=== PATIENT | female | born 1980 | race Caucasian/White ===

== ENCOUNTER 2019-10-27 11:58 | Emergency (ER) | payer BC, SELFPAY ==
[2019-10-27 12:00] VITALS: BP 187/97; PULSE 93; RESP 18; TEMP 36.8; O2SAT 96
[2019-10-27 12:19] VITALS: BP 146/85
--- NOTE | 2019-10-27 12:54 | ED.DIZZY ---
HPI - Dizziness General Chief Complaint: Dizziness Stated Complaint: dizzy Time Seen by Provider: 10/27/19 12:55 History of Present Illness HPI Narrative: 39-year-old female patient is here with chief complaints of experiencing dizziness for the last 2-3 days. She states that it started with waking up 3 days ago and has continued since then. The dizziness is worse when she changes position especially from lying down to standing up. The patient denies any trouble walking and has driven herself to the ER today. She denies any passing out episodes. She denies any associated headache or nausea or vomiting. She does complain about some sinus pressure. She denies any earache. She states that her last menstrual period was just a week ago and that she is sexually active and not on any control. However she bleeds that she is not at this time. The patient states that she had had a similar episode of dizziness. Ears ago and she was told that it was her inner ear infection at that time. She is currently on no medications and has allergies to sulfa and shrimp. Related Data Allergies Allergy/AdvReac Type Severity Reaction Status Date / Time Sulfa (Sulfonamide Allergy Unknown HIVES Unverified 08/08/11 02:36 Antibiotics) sulfanilamide Allergy Unknown Verified 07/15/11 14:35 Shrimp Allergy Unknown HIVES Uncoded 08/08/11 02:36 Review of Systems Review of Systems: All systems reviewed & are unremarkable except as noted in HPI and below Constitutional: Constitutional: Reports as per HPI, Reports no additional constitutional complaints, Denies chills, Denies fatigue, Denies fever(s) and Denies weakness Eyes: Eyes: Denies change in vision and Denies photophobia ENT: Reports vertigo, Reports dizziness, Reports nasal congestion and Denies sore throat Cardiovascular: Cardiovascular: Reports no additional cardiovascular complaints Respiratory: Respiratory: Reports no additional respiratory complaints Gastrointestinal: Gastrointestinal: Reports no additional gastrointestinal complaints, Denies nausea and Denies vomiting Genitourinary: Genitourinary: Reports no additional female genitourinary complaints Musculoskeletal: Musculoskeletal: Reports no additional musculoskeletal complaints Integumentary/Breasts: Skin/Breast: Reports as per HPI Neurologic: Reports system reviewed and no additional complaints, except as documented, Denies confusion, Reports vertigo, Reports dizziness, Denies syncope, Denies headache(s), Denies focal weakness, Denies numbness and Denies weakness Psychiatric: Psychiatric: Reports no additional psychiatric complaints PMFSH Past Medical History Medical History (Updated 10/27/19 @ 14:05 by Azul Chou MD) No pertinent past medical history Surgical History Surgical History (Updated 10/27/19 @ 13:17 by Azul Chou MD) No pertinent past surgical history Family History Family History Mother Hypertension Grandparent Family history of coronary artery disease Diabetes mellitus Social History Social History Alcohol intake: current Exam Const: General: healthy appearing, no acute distress and alert; No confusion Nutritional Appearance: well nourished Orientation/consciousness: patient oriented x3 Limitations: no limitations HENMT: Head: normal to inspection Ears: TM's normal bilaterally Face and sinus: sinus tenderness Course Course Emergency Course: Patient does have a negative urine test. I have discussed the treatment of vertigo with her with meclizine. She states that she can have her come and pick her up. Suha she is also aware of the discharge plans. Vital Signs Vital signs: Vital Signs Temperature 36.8 C 10/27/19 12:00 Pulse Rate 93 10/27/19 12:00 Respiratory Rate 18 10/27/19 12:00 Blood Pressure 187/97 H 10/27/19 12:00 Puls
[2019-10-27 13:22] LABS: Pregnancy On Board Control Positive; Urine Pregnancy Test Negative
[2019-10-27 14:12] VITALS: BP 131/81; PULSE 81; RESP 16; O2SAT 96
[2019-10-27] MEDS: MECLIZINE HCL 25 MG TABLET PO (14:20)
[2019-10-27 14:37] VITALS: BP 121/70; RESP 18; O2SAT 98
== END 2019-10-27 14:37 | disposition home or self-care (01) ==
PROVIDERS: Emergency Provider Emergency Medicine; PCP Internal Medicine
DX: R42 Dizziness and giddiness (principal)
CPT/HCPCS: 81025; 99283; A9270

== ENCOUNTER 2021-12-13 22:32 | Emergency (ER) | payer SELFPAY ==
[2021-12-13 22:44] VITALS: BP 141/72; PULSE 82; RESP 18; TEMP 36.8; O2SAT 97
--- NOTE | 2021-12-13 23:13 | ED.LOWEXIN ---
HPI - Extremity Injury (Lower) General Chief Complaint: Extremity Injury, Lower Stated Complaint: right calf pain Time Seen by Provider: 12/13/21 22:36 Source: patient and RN notes reviewed Mode of arrival: ambulatory Limitations: no limitations History of Present Illness complaint: leg injury Type of Injury: other (pt was running and felt a right calf pop x 1 day ago. this pm, the right calf was red, hot and painful. pt is concerned about DVT. pt has varicose veins.) Place: street/outdoors Severity: mild Severity scale (1-10): 2 Relieving factors: cold therapy Exacerbating factors: weight bearing, movement and palpation Context: running Associated symptoms: snap/pop sensation and swelling Other symptoms: none Treatments prior to arrival: cold therapy Related Data Allergies Allergy/AdvReac Type Severity Reaction Status Date / Time Sulfa (Sulfonamide Allergy Unknown HIVES Verified 10/27/19 14:13 Antibiotics) sulfanilamide Allergy Unknown Unknown Verified 10/27/19 14:13 Shrimp Allergy Unknown Unknown Uncoded 10/27/19 14:13 Review of Systems Review of Systems: All systems reviewed & are unremarkable except as noted in HPI and below Constitutional: Constitutional: Reports no additional constitutional complaints Eyes: Eyes: Reports no additional eye complaints ENT: Reports system reviewed and no additional complaints, except as documented Cardiovascular: Cardiovascular: Reports no additional cardiovascular complaints Respiratory: Respiratory: Reports no additional respiratory complaints Gastrointestinal: Gastrointestinal: Reports no additional gastrointestinal complaints Genitourinary: Genitourinary: Reports no additional female genitourinary complaints Musculoskeletal: Comments: right calf redness, swelling and pain. Integumentary/Breasts: Skin/Breast: Reports system reviewed and no additional complaints, except as docu Neurologic: Reports system reviewed and no additional complaints, except as documented Psychiatric: Psychiatric: Reports no additional psychiatric complaints Endocrine: Endocrine: Reports no additional endocrine complaints Hematologic/Lymphatic: Hematologic/Lymphatic: Reports no additional hematologic/lymphatic complaints Allergic/Immunologic: Allergic/Immunologic: Reports no additional allergic/immunologic complaints [facility] Past Medical History Medical History No pertinent past medical history Right calf pain Varicose vein of leg Surgical History Surgical History No pertinent past surgical history Family History Family History Mother Hypertension Grandparent Family history of coronary artery disease Diabetes mellitus Social History Social History Alcohol intake: current Exam Const: General: healthy appearing and no acute distress Nutritional Appearance: well nourished Orientation/consciousness: patient oriented x3 Limitations: no limitations HENMT: Head: normal to inspection Ears: external ears normal, TM's normal bilaterally and EAC's normal General nose exam: Normal external nose present and Normal nares present Face and sinus: normal facial exam and sinuses nontender Mouth: Yes Normal oral and palatal mucosa present and Yes moist mucous membranes Teeth and gingiva: dentition normal Throat: posterior oropharynx normal Eyes: Conjunctivae: conjunctivae normal Pupils: Equal, round and reactive pupils present EOM: EOMs intact bilaterally Neck: Neck: normal visual inspection, no lymphadenopathy and no meningeal signs Chest: Chest palpation & inspection: normal inspection of the chest Resp: Effort & Inspection: normal respiratory effort Auscultation: clear to auscultation bilaterally Cardio: Rate: regular rate Rhythm: regular rhythm
[2021-12-13 23:22] LABS: Basophils Absolute Auto 0.06 K/mm3 (0.00-0.10); Basophils Percent Auto 0.6 % (0.0-1.0); Eosinophils Absolute Auto 0.54 K/mm3 (0.02-0.50); Eosinophils Percent Auto 5.2 % (1.0-6.0); Hemoglobin 12.2 g/dL (12.0-15.0); Immature Granulocyte Absolute 0.03 K/mm3 (0.00-0.00); Immature Granulocyte Percent A 0.3 % (0.0-0.0); Lymphocytes Absolute Auto 3.64 K/mm3 (1.10-4.50); Lymphocytes Percent Auto 34.9 % (18.0-42.0); Mean Corpuscular Hemoglobin 29.8 pg (27.0-31.0); Mean Corpuscular Volume 90.5 fL (78.0-102.0); Mean Platelet Volume 10.1 fl (9.2-11.8); Monocytes Absolute Auto 0.87 K/mm3 (0.10-0.90); Monocytes Percent Auto 8.3 % (2.0-11.0); Neutrophils Absolute Auto 5.3 K/mm3 (1.7-7.2); Neutrophils Percent Auto 50.7 % (50.0-70.0); Platelet Count Result 298 K/mm3 (150-420); Red Blood Count 4.09 M/mm3 (4.20-5.40); Red Cell Distribution Width 13.4 % (11.6-14.4); White Blood Count 10.4 K/mm3 (4.8-10.8)
[2021-12-13 23:36] LABS: Partial Thromboplastin Time 27.7 SEC (23.90-30.70); Prothrombin Time 10.5 Seconds (9.50-12.10)
[2021-12-14 00:09] VITALS: BP 129/67; PULSE 67; RESP 18; O2SAT 99
== END 2021-12-14 00:10 | disposition home or self-care (01) ==
PROVIDERS: Emergency Provider Emergency Medicine; PCP Internal Medicine
DX: M79.661 Pain in right lower leg (principal); I83.91 Asymptomatic varicose veins of right lower extremity; I82.401 Acute embolism and thrombosis of unspecified deep veins of right lower extremity
CPT/HCPCS: 36415; 85025; 85610; 85730; 96372; 99283

== ENCOUNTER 2021-12-14 08:19 | Outpatient (CLI) | payer SELFPAY ==
--- NOTE | ~2021-12-14 | US_ITS ---
EXAMINATION:US venous doppler LE RT INDICATION:Right lower extremity swelling and pain TECHNIQUE: Multiple grayscale, color flow and Doppler images of the right lower extremity deep venous systems were obtained and reviewed. COMPARISON:No prior studies for comparison. FINDINGS: The common femoral, superficial femoral and popliteal veins demonstrate normal respiratory variation, augmentation and compressibility. Color flow is also seen within the posterior tibial, pe roneal, greater saphenous and profunda veins. IMPRESSION: 1: No lower extremity deep venous thrombosis. Reviewed, dictated and finalized at location A.
== END 2021-12-14 08:20 | disposition home or self-care (01) ==
PROVIDERS: PCP Internal Medicine; Visit Provider Internal Medicine
DX: M79.89 Other specified soft tissue disorders (principal); M79.661 Pain in right lower leg
CPT/HCPCS: 93971

== ENCOUNTER 2024-05-03 22:40 | Emergency (ER) | payer SELFPAY ==
--- OUTSIDE RECORDS SUMMARY | 2024-05-03 22:43 | XMS_ITS | Continuity of Care Document ---
Author Organization [facility] Address [address] [place] [address] Phone Care Team Providers Care Manufacturer Agent Name Role Phone Unavailable Unavailable Unavailable Advance Directives Directive Yes / No Effective Date File Name No Information Encounters Encounter Description Practice Location Reason(s) For Visit Diagnoses Date Provider Providers Copied on Encounter [facility], [address] [facility], [place], [place], [id number], [place] tel:[phone] [facility] No Information 0 2 No Information Referring Provider: LALA SANTANA, [address] [place] [address],[place], [address]. tel:[phone] Family History Family Member Type Diagnosis Age At Onset No Information Payers Payer name Insurance type Covered republican ID Authoriza tion(s) No Information Social History Type Description Quantity Date Captured Comments Sex Female Smoking Status No Information Chief Complaint And Reason For Visit No Information History Of Present Illness Encounter Date Complaint History Of Prese nt Illness No Information Instructions Date Instruction Additional Infor mation No Information Assessments Type Assessment Date No Information
--- OUTSIDE RECORDS SUMMARY | 2024-05-03 22:43 | XMS_ITS | Clinical Summary ---
Author Organization [facility] [address] [facility] 3rd [place] [address] Phone Care Team Providers Care Skull Grinder Name Role Phone Prabha Tripathi MD Primary Care Provider + Allergies Active Allergy Reactions Criticality Noted Date Comments Shellfish Containing Products Swelling Low 2011 Sulfa (Sulfonamide Antibiotics) Rash Low 03/2011 Medications VITS W-CA,FE,FA,<1MG , ( VITAMIN ORAL) Take 1 Tab by mouth daily. Active oxyCODONE-aceta minophen (PERCOCET) 5-325 mg Oral tablet Take 2 Tabs by mouth every 6 hours as needed for Pain, Moderate (For Pain Scale 4-6). 40 Tab 0 11/30/2011 Active ibuprofen (MOTRIN) 600 mg Oral tablet Take 1 Tab by mouth every 6 hours as needed for Pain. 40 Tab 1 11/30/2011 Active Active Problems Problem Noted Date Diagnosed Date C Section 9.5 11/26/2011 Resolved Problems Problem Noted Date Diagnosed Date Resolved Date vag bleed, BMZ(max'd 11/23), N ICU, PNC in am, transverse(rLTCS for del), CBC/T&S pending 11/26/2011 11/26/2011 Immunizations Immunization Administration Dates Next Due (ADACEL/BOOSTRIX)(10 YR UP) TDAP VACCINE, 0.5ML, IM 11/30/2011 Family History Medical History Relation Name Comments Healthy Son Relation Name Status Comments Son Alive Social History Tobacco Use Types Packs/Day Years Used Date Smoking Tobacco: Former Smokeless Tobacco: Never Alcohol Use Standard Drinks/Week Comments No 0 (1 standard drink = 0.6 oz pur e alcohol) Comments Unknown Sex and Gender Information Value Date Recorded Sex Assigned at Not on file 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 Gender Identity Not on file Sexual Orientation Not on file Occupation Industry Job Start Date Job End Date Not on file Not on file Not on file Not on file Last Filed Vital Signs Vital Sign Reading Time Taken Comments Blood Pressure 106/70 11/30/2011 8:57 AM CDT Pulse 74 11/30/2011 8:57 AM CDT Temperature 36.7 C (98 F) 11/30/2011 8:57 AM CDT Respiratory Rate 18 11/30/2011 8:57 AM CDT Oxygen Saturation 98% 11/30/2011 8:57 AM CDT Inhaled Oxygen Concentration - - Weight 132.5 kg (292 lb) 11/26/2011 3:33 PM CDT Height 170.2 cm (5' 7 ) 11/26/2011 3:33 PM CDT Body Mass Index 45.73 11/26/2011 3:33 PM CDT Plan of Treatment Health Maintenance Due Date Last Done Comments HEPATITIS B VACCINES (1 of 3 - 19+ 3-dose series) 1999 CERVICAL CANCER SCREENING 2010 BREAST CANCER SCREENING 2020 DTAP/TDAP/TD VACCINES (2 - T d or Tdap) 11/29/2021 11/30/2011 INFLUENZA VACCINE (#1) 2023 HPV VACCINES Aged Out No longer eligi ble based on patient's age to complete this topic PNEUMOCOCCAL VACCINE 0-64 YEARS Aged Out No longer eligible based on patient's age to complete this topic Advance Directives For more information, please contact: [phone] * Full Code (Latest Code Status on File) Date Activated Date Inactivated Comments 11/27/2011 2:20 AM 11/30/2011 6:43 PM * Full Code Date Activated Date Inactivated Comments 11/26/2011 5:20 PM 11/27/2011 2:20 AM Care Teams Skull Grinder Relationship Specialty Start Date End Date Prabha Tripathi MD [address] [place] [phone] PCP - General Internal Medicine 07/21/11
[2024-05-03 23:01] VITALS: BP 168/86; PULSE 79; RESP 18; TEMP 36.9; O2SAT 98
--- NOTE | 2024-05-03 23:07 | ED_ITS ---
HPI - Extremity Injury (Lower) General Chief Complaint: Extremity Injury, Lower Stated Complaint: Left Leg Pain Time Seen by Provider: 05/03/24 23:07 Source: patient Mode of arrival: ambulatory Limitations: no limitations History of Present Illness HPI Narrative: 44 YEARS OLD WHITE FEMALE CAME TO THE ED BY PRIVATE CAR COMPLAINING OF PAIN AT THE LEFT LEG. HISTORY OF EXTENSIVE VARICOSE VEIN IN BOTH LEGS MAINLY ON THE LEFT 1, 3 WEEKS AGO THE SKIN AROUND VARICOSE VEIN STARTED GETTING TENDER, WARM TO TOUCH. GETS BETTER WITH COMPRESSION STOCKING AND ELEVATION. PATIENT DENIES ANY PAIN AT THE CALF MUSCLES OR ANY SHORTNESS OF BREATH. OR ANY TRAUMA. Related Data Allergies Allergy/AdvReac Type Severity Reaction Status Date / Time Sulfa (Sulfonamide Allergy Unknown HIVES Verified 10/27/19 14:13 Antibiotics) sulfanilamide Allergy Unknown Unknown Verified 10/27/19 14:13 Shrimp Allergy Unknown Unknown Uncoded 10/27/19 14:13 Review of Systems Review of Systems: All systems reviewed & are unremarkable except as noted in HPI and below PMFSH Past Medical History Medical History Varicose vein of leg Right calf pain No pertinent past medical history Surgical History Surgical History No pertinent past surgical history Family History Family History Mother Hypertension Grandparent Family history of coronary artery disease Diabetes mellitus Social History Social History Alcohol intake: current Exam Narrative: GENERAL APPEARANCE: WELL-DEVELOPED, WELL-NOURISHED SKIN: NORMAL COLOR CHEST AND RESPIRATORY: AIRWAY PATENT, NO RESPIRATORY DISTRESS, NO ACCESSORY MUSCLE USE HEART: REGULAR RATE/RHYTHM ABDOMEN: SOFT, NONTENDER, NO ORGANOMEGALY, QUIET BOWEL SOUNDS VASCULAR: NORMAL PERIPHERAL PULSES, NORMAL CAPILLARY REFILL. MUSCULOSKELETAL: LEFT LOWER LEG SHOWING EXTENSIVE VARICOSE VEINS, ROAD LIKE FEELING UNDER THE SKIN, SLIGHTLY RED AND WARM TO TOUCH AT THE PROXIMAL, MEDIAL SIDE OF THE LOWER LEG NEUROLOGIC: ALERT AND ORIENTED ?3, AERONAUTICAL ENGINEERING TECHNOLOGIST IS NORMAL TESTED, NO GROSS MOTOR DEFICIT MDM - Extremity Injury (Lower) MDM Narrative Medical decision making narrative: LEFT LEG VARICOSE VEINS, DIFFERENTIAL DIAGNOSIS SUPERFICIAL THROMBOPHLEBITIS, CALF MUSCLES ARE NOT TENDER, DISCHARGED ON ANTI-INFLAMMATORY, WARM COMPRESSES, COMPRESSION STOCKING AND ELEVATION Differential Diagnosis Differential diagnosis: Likely other ( ABOVE) Critical Care Time Critical Care Time Critical Care Time: No Discharge Plan Discharge Clinical Impression: Superficial thrombophlebitis Patient Disposition: Home, Self-Care Condition: Stable Instructions: Superficial Thrombophlebitis (ED) Additional Instructions: RETURN IF SYMPTOMS ARE WORSENING , CALL YOUR FAMILY PHYSICIAN FOR APPOINTMENT, TAKE TYLENOL NEEDED FOR ACHES AND PAIN, CONTINUE HOME MEDICATIONS. KEEP LEG ELEVATED COMPRESSION STOCKING WARM COMPRESSES IBUPROFEN 600 EVERY 6 HOURS NEEDED Patient Language: Georgian Prescriptions: No Action cephalexin 500 mg tablet 500 mg PO Q6H Qty: 40 0RF enoxaparin [Lovenox] 120 mg/0.8 mL syringe 120 mg subcut Q12H Qty: 8 0RF Follow-up/Referrals: Prabha Tripathi MD [Primary Care Provider] -
[2024-05-03 23:14] VITALS: BP 152/55; PULSE 76; RESP 16; O2SAT 99
--- OUTSIDE RECORDS SUMMARY | 2024-05-03 23:18 | XMS_ITS | Continuity of Care Document ---
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 tel:[phone] Family History Family Member Type Diagnosis Age At Onset No Information Payers Payer name Insurance type Covered democrat ID Authoriza tion(s) No Information Social History Type Description Quantity Date Captured Comments Sex Female Smoking Status No Information Chief Complaint And Reason For Visit No Information History Of Present Illness Encounter Date Complaint History Of Prese nt Illness No Information Instructions Date Instruction Additional Infor mation No Information Assessments Type Assessment Date No Information
== END 2024-05-03 23:20 | disposition home or self-care (01) ==
LOC: CHSED 23:16
PROVIDERS: Emergency Provider Emergency Medicine; PCP Internal Medicine
DX: I80.02 Phlebitis and thrombophlebitis of superficial vessels of left lower extremity (principal)
CPT/HCPCS: 99281